=== PATIENT | female | born 1990 | race Caucasian/White ===

== ENCOUNTER 2022-02-23 08:49 | Emergency (ER) | payer OTHER ==
[~2022-02-23] VITALS: Ht 165.1 cm; Wt 56.7 kg
[2022-02-23 08:56] VITALS: BP 111/81
--- NOTE | 2022-02-23 08:56 | NUR ---
BIB FRIEND C/O L WRIST PAIN S/P GLF AT 2AM THIS MORNING. PT STATED PAIN 10/10 ON PAIN SCALE.
--- NOTE | 2022-02-23 09:20 | NUR ---
X RAY AT BEDSIDE
[2022-02-23] MEDS ORDERED: IBUP-1955 PO (10:15)
[2022-02-23] MEDS ORDERED: TRAM50TA2 PO (10:15)
[2022-02-23] MEDS ORDERED: HYDROCODONE/APAP 10/325MG TABLET PO ONE (10:30)
[2022-02-23] MEDS ORDERED: IBUPROFEN 600 MG TABLET PO ONE (10:30)
[2022-02-23] MEDS ORDERED: IBUPROFEN 600 MG TABLET ONE (11:05)
[2022-02-23] MEDS ORDERED: HYDROCODONE/APAP 5/325MG TABLET ONE (11:05)
[2022-02-23] MEDS ORDERED: HYDROCODONE/APAP 10/325MG TABLET ONE (11:08)
--- NOTE | 2022-02-23 11:27 | NUR ---
Patient discharged to home in stable condition. Written and verbal after care instructions given. Patient verbalizes understanding of instruction.
== END 2022-02-23 11:28 | disposition home or self-care (01) ==
LOC: ER 08:53
DX: S52.572A Other intraarticular fracture of lower end of left radius, initial encounter for closed fracture (principal); Z88.2 Allergy status to sulfonamides; Z88.8 Allergy status to other drugs, medicaments and biological substances; Z79.899 Other long term (current) drug therapy; W01.0XXA Fall on same level from slipping, tripping and stumbling without subsequent striking against object, initial encounter; Y93.89 Activity, other specified; Y92.89 Other specified places as the place of occurrence of the external cause; Y99.8 Other external cause status
CPT/HCPCS: 73090-TC; 73110